=== PATIENT | female | born 1985 | race Caucasian/White ===

== ENCOUNTER → 2020-01-12 | Outpatient (CLI) | payer OTHER ==
--- NOTE | 2020-01-14 08:01 | Operative Report ---
Operative Report DATE OF SURGERY: 01/14/20 PREOPERATIVE DIAGNOSIS: Menorrhagia POSTOPERATIVE DIAGNOSIS: Endometrial hyperplasia OPERATION: Operative hysteroscopy SURGEON: JOE WARD ANESTHESIA: LMAC TISSUE REMOVED OR ALTERED: Endometrium COMPLICATIONS: None ESTIMATED BLOOD LOSS: 25 mL INTRAOPERATIVE FINDINGS: Mccann uterine hyperplasia endometrium, no endometrial polyps or fibroids, exam under anesthesia is limited by patient size but no masses appreciated PROCEDURE: Patient had profuse vaginal bleeding with symptomatic anemia respiratory the required transfusion preop preoperatively. This was unresponsive to outpatient management including 10 mg Provera twice daily for 1 week. Ultrasound was not not productive of pathology and was elected to proceed to hysteroscopy for definitive diagnosis and possible management. The usual risk of bleeding infection anesthesia damage to other organs and tissues discussed the patient understood. Procedure patient taken the operating room placed in modified lithotomy position after adequate anesthesia ascertained exam under anesthesia performed bladder was left undrained cervix was injected with 10 mL of 1% plain lidocaine. The operative hysteroscope was inserted uneventfully and above-noted findings were appreciated. MyoSure device was deployed and removed a large amount of endometrial tissue which was sent to the lab. Bleeding was nil at the completion of procedure
== END ==
LOC: LAB 18:18
PROVIDERS: ATTEND Specialist
DX: Z53.9 Procedure and treatment not carried out, unspecified reason (principal)
CPT/HCPCS: 36415; 80048; 81001; 85027; 86850; 86900; 86901; 86920

== ENCOUNTER 2020-01-14 06:02 | Day surgery (SDC) | payer OTHER ==
[2020-01-12 19:24] LABS: HEMATOCRIT 27.3 % (36.0-47.0); HEMOGLOBIN 9.1 g/dL (12.0-15.5); MEAN CORPUSCULAR HEMOGLOBIN 28.7 pg (27.0-33.4); MEAN CORPUSCULAR HGB CONC 33.1 g/dL (32.0-36.0); MEAN CORPUSCULAR VOLUME 87 fl (80-97); PLATELET COUNT 265 10^3/uL (150-450); RED BLOOD COUNT 3.15 10^6/uL (3.72-5.28); RED CELL DISTRIBUTION WIDTH 14.1 % (11.5-14.0); WHITE BLOOD COUNT 7.3 10^3/uL (4.0-10.5)
[2020-01-12 19:28] LABS: APPEARANCE,URINE CLEAR; BILIRUBIN,URINE NEGATIVE (NEGATIVE); COLOR,URINE YELLOW; GLUCOSE, URINE NEGATIVE (NEGATIVE); KETONES,URINE NEGATIVE (NEGATIVE); PROTEIN,URINE 30 mg/dL (NEGATIVE); URINE SPECIFIC GRAVITY 1.029; UROBILINOGEN,URINE NEGATIVE mg/dL (<2.0)
[2020-01-12 19:42] LABS: ANION GAP 12 (5-19); BLOOD UREA NITROGEN 15 mg/dL (7-20); CALCIUM 9.6 mg/dL (8.4-10.2); CARBON DIOXIDE 24 mmol/L (22-30); CHLORIDE 105 mmol/L (98-107); GLUCOSE 115 mg/dL (75-110)
--- NOTE | 2020-01-13 11:19 | RADIOLOGY REPORT (SQ) ---
EXAM DESCRIPTION: CHEST SINGLE VIEW IMAGES COMPLETED DATE/TIME: 01/13/2020 11:10 am REASON FOR STUDY: PRE OP ASU BED 6 COMPARISON: None. NUMBER OF VIEWS: One view. TECHNIQUE: Single frontal radiographic view of the chest acquired. LIMITATIONS: None. FINDINGS: LUNGS AND PLEURA: No opacities, masses or pneumothorax. No pleural effusion. MEDIASTINUM AND HILAR STRUCTURES: No masses. Contour normal. HEART AND VASCULAR STRUCTURES: Heart normal in size. Normal vasculature. BONES: No acute findings. HARDWARE: None in the chest. OTHER: No other significant finding. IMPRESSION: NO SIGNIFICANT RADIOGRAPHIC FINDING IN THE CHEST. TECHNICAL DOCUMENTATION: JOB ID: [id number] 2010 [employer]- All Rights Reserved Reading location - IP/workstation name: [email or web address]
--- NOTE | 2020-01-13 12:52 | EKG REPORT ---
SEVERITY:- BORDERLINE ECG - SINUS RHYTHM NONSPECIFIC ST-T CHANGES- INFERIOR LEADS : Confirmed by: Herman Chávez MD 13-Jan-2020 12:52:20
[~2020-01-14 06:02] MED LIST: CEFAZOLIN 1 GM/D5W RTU 1 GM/50 ML RTUPB IV ONE; CEFAZOLIN 1 GM/D5W RTU 1 GM/50 ML RTUPB IV PRN
[2020-01-14] MEDS ORDERED: MIDAZOLAM 2 MG/2 ML INJ ONE (06:52)
[2020-01-14] MEDS ORDERED: KETOROLAC TROMETHAMINE 60 MG/2 ML SDV ONE (06:52)
[2020-01-14] MEDS ORDERED: FENTANYL CITRATE INJ/PF 100 MCG/2 ML AMPUL ONE (06:52)
[2020-01-14] MEDS ORDERED: PROPOFOL INJ 200 MG/20 ML VIAL IV ONE ×2 (06:53→08:02)
[2020-01-14] MEDS ORDERED: ONDANSETRON HCL INJ/PF 4 MG/2 ML SDV ONE (06:53)
[2020-01-14] MEDS ORDERED: LIDOCAINE 1% INJ-PF (10 MG/ML) 30 ML SDV ONE (07:23)
[2020-01-14] MEDS ORDERED: MORPHINE SULFATE 10 MG/ML INJ IV PRN (07:29)
[2020-01-14] MEDS ORDERED: FENTANYL CITRATE INJ/PF 100 MCG/2 ML AMPUL IV PRN ×3 (07:29)
[2020-01-14] MEDS ORDERED: MEPERIDINE HCL/PF INJ 25 MG/1 ML DISP.SYRIN IV PRN (07:29)
[2020-01-14] MEDS ORDERED: DIPHENHYDRAMINE HCL 50 MG/ML VIAL IV PRN (07:29)
[2020-01-14] MEDS ORDERED: ONDANSETRON HCL INJ/PF 4 MG/2 ML SDV IV PRN (07:29)
[2020-01-14] MEDS ORDERED: OXYCODONE-ACETAMINOPHEN 5-325 MG TABLET ONE (08:43)
[2020-01-14] MEDS ORDERED: PROMETHAZINE HCL INJ 25 MG/1 ML VIAL IM PRN (09:00)
[2020-01-14] MEDS ORDERED: MORPHINE INJ 4 MG DOSE (EDIT ROUTE) INJ PRN (09:00)
[2020-01-14] MEDS ORDERED: OXYCODONE-ACETAMINOPHEN 5-325 MG TABLET PO PRN (09:00)
[2020-01-14 10:44] VITALS: BP 143/93
[2020-01-14] MEDS ORDERED: IBUPROFEN 800 MG TABLET PO SCH (14:00)
--- NOTE | 2020-01-23 08:28 | Discharge Summary ---
Discharge Summary (SDC) - Discharge Final Diagnosis: menorrhagia Forms: ASU Anesthesia D/C Instruction, Discharge POC-Surgical Service Treatment or Instructions: PELVIC REST NO TUB BATHS AND NO SWIMMING MAY SHOWER TOMORROW DIET TOLERATED TAKE YOUR MEDICATIONS DIRECTED FOLLOW UP WITH YOUR MD SCHEDULED Referrals: JOE WARD MD [EMERITUS] - Respiratory Treatments at Home: Deep Breathing/Coughing Discharge Activity: Balance Activity w/Rest, Pelvic Rest, No tub bath Home Care Assistance: None Needed Report the Following to Your Physician Immediately: Shortness of Breath, Nausea, Vomiting, Increase in Pain, Fever over 101 Degrees, Unusual Bleeding, Redness, Swelling, Warmth, Increased Soreness, Drainage-Yellow, Drainage-Joyner, Drainage- Green, Drainage-Foul Smelling, Increased Vaginal Bleed, Large Clots, Numbness, Tingling Sensation, Wheezing, Seizure, IV Site Infection Signs
--- NOTE | 2020-02-11 09:05 | Operative Report ---
Operative Report DATE OF SURGERY: 01/19/20 PREOPERATIVE DIAGNOSIS: menorrhagia POSTOPERATIVE DIAGNOSIS: same OPERATION: operative hysteroscopy SURGEON: JOE WARD ANESTHESIA: LMAC TISSUE REMOVED OR ALTERED: endometrium COMPLICATIONS: none INTRAOPERATIVE FINDINGS: thickened lining, large cavity, no polyps or fibroids, no placental remnants PROCEDURE: after informed consent, adequate anesthesia, surgical time out and exam under anesthesia, operative hysteroscopy with myosure was done under sterile technique with the bladder undrained. moderate tissue was removed, bleeding postop was appropriate.
== END 2020-01-14 10:15 | disposition home or self-care (01) ==
LOC: OROUT 06:02 → EDBD 07:15 → OROUT 10:15
PROVIDERS: ATTEND Specialist
DX: N92.0 Excessive and frequent menstruation with regular cycle (principal); Z20.828 Contact with and (suspected) exposure to other viral communicable diseases; Z79.3 Long term (current) use of hormonal contraceptives
CPT/HCPCS: 96365; 96366; 86900; 86901; 36415; 36430; 86850; 85027; 0241U ×4; 81025; 80048; 81001; 86920; 88305 ×2; 71045; 93005; 93010; 00952; 58558; P9016; J2250; J0690; J3010; J3490; J2405; J2704; C9803; 952; J1885